=== PATIENT | female | born 1980 ===

== ENCOUNTER → 2018-02-19 | Outpatient (CLI) | payer SELFPAY ==
[~2018-02-19] MED LIST: IBUP800 PO; OXYACE5T PO; Verotin-Gr Cap1 EACH PO
== END | disposition home or self-care (01) ==
LOC: LAB 18:15 → LAB SHORT 18:15
DX: J02.9 Acute pharyngitis, unspecified (principal)
CPT/HCPCS: 84443

== ENCOUNTER 2022-08-06 05:47 | Observation (INO) | payer SELFPAY ==
[~2022-08-06] VITALS: Ht 160 cm; Wt 85.4 kg
[2022-08-06 06:08] LABS: BASOPHILS ABSOLUTE AUTO 0.03 K/mm3 (0.00-0.23); BASOPHILS PERCENT AUTO 0 % (0-2); EOSINOPHILS ABSOLUTE AUTO 0.02 K/mm3 (0.00-0.68); EOSINOPHILS PERCENT AUTO 0 % (0-6); Hematocrit 30.5 % (33.0-51.0); Hemoglobin 9.7 g/dL (11.5-16.0); IMMATURE GRAN ABSOLUTE AUTO 0.08 K/mm3 (0.00-0.10); IMMATURE GRAN PERCENT AUTO 1 % (0-1); LYMPHOCYTES ABSOLUTE AUTO 1.25 K/mm3 (0.84-5.20); LYMPHOCYTES PERCENT AUTO 10 % (21-46); MONOCYTES ABSOLUTE AUTO 0.34 K/mm3 (0.16-1.47); MONOCYTES PERCENT AUTO 3 % (4-13); Mean Corpuscular HGB 25.3 pg (26.0-34.0); Mean Corpuscular HGB Conc 31.8 g/dL (31.5-36.5); Mean Corpuscular Volume 79 fL (80-100); Mean Platelet Volume 9.2 fL (9.1-12.4); NEUTROPHILS ABSOLUTE AUTO 11.03 K/mm3 (1.96-9.15); NEUTROPHILS PERCENT AUTO 87 % (41-73); Platelet Count 327 K/mm3 (150-400); RDW Coefficient Variation 15.2 % (11.7-14.2); RDW Standard Deviation 43.6 fL (35.1-46.3); Red Blood Cell Count 3.84 M/mm3 (3.80-5.20); White Blood Cell Count 12.75 K/mm3 (4.00-11.30)
[2022-08-06 06:27] LABS: Bun/Creatinine Ratio 15.3 (12.0-20.0); Calcium, Blood 7.9 mg/dL (8.5-10.1); Creatinine, Blood 0.72 mg/dL (0.40-1.00); Potassium, Blood 3.4 mmol/L (3.5-5.5)
[2022-08-06 11:09] LABS: BASOPHILS ABSOLUTE AUTO 0.02 K/mm3 (0.00-0.23); BASOPHILS PERCENT AUTO 0 % (0-2); EOSINOPHILS PERCENT AUTO 0 % (0-6); Hematocrit 32.2 % (33.0-51.0); Hemoglobin 10.3 g/dL (11.5-16.0); IMMATURE GRAN ABSOLUTE AUTO 0.05 K/mm3 (0.00-0.10); IMMATURE GRAN PERCENT AUTO 1 % (0-1); LYMPHOCYTES ABSOLUTE AUTO 0.96 K/mm3 (0.84-5.20); LYMPHOCYTES PERCENT AUTO 9 % (21-46); MONOCYTES ABSOLUTE AUTO 0.19 K/mm3 (0.16-1.47); MONOCYTES PERCENT AUTO 2 % (4-13); Mean Corpuscular HGB 25.4 pg (26.0-34.0); Mean Corpuscular Volume 79 fL (80-100); Mean Platelet Volume 9.1 fL (9.1-12.4); NEUTROPHILS ABSOLUTE AUTO 9.01 K/mm3 (1.96-9.15); NEUTROPHILS PERCENT AUTO 88 % (41-73); Platelet Count 292 K/mm3 (150-400); RDW Coefficient Variation 15.9 % (11.7-14.2); RDW Standard Deviation 45.7 fL (35.1-46.3); Red Blood Cell Count 4.06 M/mm3 (3.80-5.20); White Blood Cell Count 10.23 K/mm3 (4.00-11.30)
--- NOTE | 2022-08-06 12:41 | NUR ---
ARRIVAL NOTE PT ARRIVED TO THE FLOOR AT 1040 ACCOMPANIED BY HER , ABLE TO SELF TRANSFER TO HER BED. WEIGHT OBTAINED, ASSESSMENT COMPLETED, ATTENDS IN PLACE FOR BLEEDING WHICH HAD A MODERATE AMOUNT OF BLOOD IN IT FROM HER TIME IN THE ER. EXTRA PADS PLACED IN THE ROOM AND PT EDUCATED TO SAVE THEM WHEN SHE CHANGES THEM AND TO LET STAFF KNOW SO WE CAN MONITOR BLEEDING. PT HAS NO CONCERNS AT THIS TIME AND IS REPORTING FEELING BETTER REQUESTING A SHOWER. WILL CTM.
[2022-08-06] MEDS ORDERED: ACET500 PO (13:55)
[2022-08-06] MEDS ORDERED: IBUP600 PO (13:55)
--- NOTE | 2022-08-06 15:39 | NUR ---
DISCHARGE SUMMARY S/P MISCARRIAGE c VAGINAL BLEEDING, A/O X4, VSS, TOLERATING PO, AMBULATING INDEPENDENTLY, DENIES PAIN. DISCUSSED DISCHARGE INFORMATION WITH THE PATIENT AND 2 FAMILY MEMEBERS WHO WERE PRESENT INCLUDING HOME CARE, S/SX TO LOOK OUT FOR, AND CONTACT INFORMATION SHOULD QUESTIONS/CONCERNS COME UP AFTER DISCHARGE. PT REPORTS NO HAVING ANY QUESTIONS AT TIME OF DISCHARGE BUT WAS ENCOURAGED TO CALL IF ANY ARISE LATER. ALL IV ACCESS DEVICES REMOVED, PT ESCORTED OUT VIA WC TO PRIVATE AUTO TO GO HOME WITH AND SON.
== END 2022-08-06 15:14 | disposition home or self-care (01) ==
LOC: ER 05:47 → SURS 08:34
PROVIDERS: Emergency Medicine; ADMIT Obstetrics & Gynecology
DX: O03.1 Delayed or excessive hemorrhage following incomplete spontaneous abortion (principal); D64.9 Anemia, unspecified; J45.909 Unspecified asthma, uncomplicated; Z67.11 Type A blood, Rh negative
CPT/HCPCS: 36415; 36430; 76801; 80048; 84702; 85025; 86850; 86900; 86901; 86920; 88305; 96372; 99285-25; A9270; G0378; J2791; J7030; J7120; P9016

== ENCOUNTER → 2023-09-23 | Outpatient (CLI) | payer SELFPAY ==
[~2023-09-23] MED LIST changes: +ACET500 PO; +IBUP600 PO
[2023-09-23 12:16] LABS: Source, Urine Clean Catch
[2023-09-23 15:48] LABS: Appearance, Urine Clear (Clear); Bilirubin, Urine Neg (Neg); Blood, Urine 4+ (Neg); Color, Urine Yellow (P-Yellow); Glucose Qualitative, Urine Neg (Neg); Ketones, Urine Neg (Neg); Leukocyte Esterase, Urine 1+ (Neg); Nitrite, Urine Neg (Neg); Protein, Urine 1+ (Neg); Specific Gravity, Urine 1.015 (1.003-1.022); Urobilinogen, Urine NORM (Normal); pH, Urine 6.5 (5.0-8.0)
[2023-09-23 16:21] LABS: Bacteria Few /hpf; Calcium Oxalate Crystals Many /hpf; Squamous Epithelial Cells Few /hpf (Few)
== END ==
LOC: LAB 12:13 → LAB SHORT 12:13
PROVIDERS: Obstetrics & Gynecology
DX: N23 Unspecified renal colic (principal)
CPT/HCPCS: 81001; 87077; 87086; 87186